=== PATIENT | female | born 1970 ===

== ENCOUNTER 2017-11-24 09:30 | Inpatient (IN) | payer OTHER ==
[~2017-11-24] VITALS: Ht 175.3 cm; Wt 67.1 kg
[2017-11-24] MEDS ORDERED: HYDROCHLOROTH12.5 M1 PO (10:47)
[2017-11-24] MEDS ORDERED: VASOTEC20 M1 PO (10:47)
[2017-12-02] MEDS ORDERED: GAS RELIEF125 MG PO (06:47)
[2017-12-02] MEDS ORDERED: ENALAPRIL MALEA20 MG PO (06:47)
[2017-12-02] MEDS ORDERED: POLY119PG PO (06:47)
[2017-12-02] MEDS ORDERED: IBUPROFEN800 MG PO (06:47)
[2017-12-02] MEDS ORDERED: GABAPENTIN600 MG PO (06:47)
[2017-12-05] MEDS ORDERED: VASOTEC20 M1 (03:56)
[2017-12-10] MEDS ORDERED: LEVSIN/SL0.125 MG PO (07:19)
[2017-12-10] MEDS ORDERED: GAS RELIEF125 MG PO (07:19)
== END 2017-12-02 09:49 | DRG 742 ==
LOC: O/R 11-29 04:50 → SURG 11-29 07:00 → OB/GYN 11-29 11:09
PROVIDERS: Obstetrics & Gynecology
PROC: 0UT70ZZ Resection of Bilateral Fallopian Tubes, Open Approach (ICD-10-PCS; 2017-11-29)
PROC: 0U9 Female Reproductive System, Drainage (ICD-10-PCS; 2017-11-29)
PROC: 0UT90ZZ Resection of Uterus, Open Approach (ICD-10-PCS; principal; 2017-11-29 07:00)
PROC: 30233N1 Transfusion of Nonautologous Red Blood Cells into Peripheral Vein, Percutaneous Approach (ICD-10-PCS; 2017-11-30)
DX: D25.1 Intramural leiomyoma of uterus (principal); D62 Acute posthemorrhagic anemia; D25.2 Subserosal leiomyoma of uterus; D25.0 Submucous leiomyoma of uterus; N84.0 Polyp of corpus uteri; N72 Inflammatory disease of cervix uteri; I10 Essential (primary) hypertension